=== PATIENT | female | born 2000 | race Caucasian/White ===

== ENCOUNTER 2023-09-20 18:06 | Emergency (ER) | payer OTHER, SELFPAY ==
[2023-09-20 18:08] VITALS: BP 135/73; PULSE 64; RESP 18; TEMP 36.6; O2SAT 100
[2023-09-20 20:10] VITALS: BP 131/82; PULSE 76; RESP 18; O2SAT 100
--- NOTE | 2023-09-20 20:55 | ED.ANIMALBIT ---
HPI - Animal Bite General Chief Complaint: Animal Bite Stated Complaint: dog bite Time Seen by Provider: 09/20/23 19:50 Source: patient Mode of arrival: ambulatory Limitations: no limitations History of Present Illness HPI narrative: Pt is a 23-year-old female who presents to the ER after being bitten by a neighbor's pitbull-mix dog [employer]. She was passing the dog on the sidewalk when it turned around and bit her unprovoked. The wound is on her LLE. Pt reports a piece of fat fell out and she continues to ooze blood from the site. She reports the dog's box truck owner operator said the dog is up-to-date on vaccination but is unsure how long ago it received the rabies vaccine. Pt reports she is up-to-date on her Tetanus (last received it two months ago). She denies the need for pain medication at this time. Related Data Allergies Allergy/AdvReac Type Severity Reaction Status Date / Time No Known Allergies Allergy Verified 09/20/23 18:11 Review of Systems Review of Systems: All systems reviewed & are unremarkable except as noted in HPI and below (HPI) Exam Narrative: GENERAL: Well-appearing, well-nourished and in no acute distress. CARDIAC: Regular rate and rhythm without murmurs, rubs or gallops. RESPIRATORY: Clear to auscultation bilaterally. No wheezes, rales or rhonchi. EXTREMITIES: Normal range of motion, no swelling, clubbing or other deformities. SKIN: Warm, dry. Pt has a 1/2 inch long open wound on her LLE about [address] down her calf. Wound is oozing continuously but increases when pressure is applied. Course Vital Signs Vital signs: Vital Signs Temperature 36.6 C 09/20/23 18:08 Pulse Rate 64 09/20/23 18:08 Respiratory Rate 18 09/20/23 18:08 Blood Pressure 135/73 09/20/23 18:08 Pulse Oximetry 100 09/20/23 18:08 Oxygen Delivery Room Air 09/20/23 18:08 Temperature 36.6 C 09/20/23 18:08 Pulse Rate 64 09/20/23 18:08 Respiratory Rate 18 09/20/23 18:08 Blood Pressure 135/73 09/20/23 18:08 Pulse Oximetry 100 09/20/23 18:08 Oxygen Delivery Room Air 09/20/23 18:08 Procedures Laceration Laceration 1: Date: 09/20/23 Time: 21:25 Site: lower extremity Side (If applicable): left Size (cm): 0.25 Description: linear Depth: simple, single layer Local Anesthetic: lidocaine 1% Amount of anesthesia used (mL): 3 Pre-repair: wound explored, irrigated and irrigated extensively ====== Skin Level ====== Skin layer closed with: nylon Size (cm): 4-0 Number of sutures: 1 Technique: simple, interrupted ====== Subcutaneous Layer ====== ====== Muscle Layer ====== ====== Tendon Layer ====== MDM - Animal Bite MDM Narrative Medical decision making narrative: Pt is a 23-year-old female who presents to the ER after being bitten by a neighbor's pit bull-mix dog [employer]. She was passing the dog on the sidewalk when it turned around and bit her unprovoked. The wound is on her LLE. Pt reports a piece of fat fell out and she continues to ooze blood from the site. She reports the dog's box truck owner operator said the dog is up-to-date on vaccination but is unsure how long ago it received the rabies vaccine. Pt reports she is up-to-date on her Tetanus (last received it two months ago) Pt has no medical history. No work-up necessary during this visit. Pt's wound was irrigated with normal saline. Lidocaine 1% administered. Laceration loosely approximated with one suture. Pt told to follow-up in ten days for suture removal. Differential Diagnosis Differential diagnosis: Likely bite by animal, dog bite and rabies contact Medical Records Attestation: I reviewed the patient's medical records. Discharge Plan Discharge Clinical Impression: Dog bite Qualifiers: Encounter type: initial encounter Qualified Code(s): W54.0XXA - Bitten by dog, initial encounter Patient Disposition: Home, Self-Care C
[2023-09-20] MEDS: AMOXICILLIN/CLAVULANATE K 875-125 MG TAB 1 TABLET BY MOUTH (21:13)
[2023-09-20 22:10] VITALS: BP 123/77; PULSE 77; RESP 18; O2SAT 100
== END 2023-09-20 22:10 | disposition home or self-care (01) ==
PROVIDERS: Emergency Provider Registered Nurse
DX: S81.852A Open bite, left lower leg, initial encounter (principal); W54.0XXA Bitten by dog, initial encounter
CPT/HCPCS: 12001; 99283; A9270